=== PATIENT | female | born 1965 | race Caucasian/White ===

== ENCOUNTER → 2016-09-07 | Outpatient (CLI) | payer OTHER ==
[~2016-09-07] MED LIST: ASPI-586 PO; LISI1TAB6 PO
--- NOTE | 2016-09-07 20:34 | Diagnostic Imaging Report ---
EXAM: Right breast ultrasound. INDICATION: Followup lesions seen in the right breast. COMPARISON: 02/12/2016. FINDINGS: At the 2:00 o'clock zone, 5 cm from the nipple, there is a 7 x 7 x 6 mm hypoechoic lesion with peripheral hyperechoic component and shadowing suggestive of an oil cyst. There is another smaller lesion at the 1:30 o'clock position with similar features. These are accompanied by other simple-appearing cysts in the breasts. There is no concerning change from the previous exam. IMPRESSION: The findings are suggestive of oil cysts and simple cysts with no solid mass seen. Return to screening mammography with next exam due in February 2017 Recommended. BI-RADS 2. ACR BI-RADS Category 2: Benign findings. Result letter will be mailed to the patient. Note: At least 10% of breast cancer is not imaged by mammography. Dictated by: Dictated on workstation # [id number]
== END ==
LOC: RAD 09:59
PROVIDERS: ATTEND Nurse Practitioner Family
DX: N60.11 Diffuse cystic mastopathy of right breast (principal)

== ENCOUNTER → 2019-01-18 | Outpatient (CLI) | payer OTHER ==
--- NOTE | 2019-01-18 18:09 | Diagnostic Imaging Report ---
EXAMINATION: Bilateral diagnostic mammogram. The current study was also evaluated with a Computer Aided Detection (CAD) system. 3-D tomosynthesis was also performed and reviewed. INDICATION: Right breast lump. FINDINGS: This study was compared to the prior exams of 02/12/2016 and 02/22/2012. At this time, the patient does complain of a lump in the medial aspect of the right breast. According to the patient, the lump has been present since 2012. A marker was placed over the area of concern. As seen on the prior exam, there do appear to be several oil cysts in this region. There is no primary or secondary sign of malignancy noted. Even so, ultrasound will be recommended for further study. In the interval since the prior study, a small fairly well-circumscribed 8 mm oval density has developed in the upper-outer aspect of the right breast approximately 10 cm from the nipple. The tomographic images suggest that this density has a generally benign appearance. Even so, I would recommend that this area also be evaluated by ultrasound. The left breast is essentially no different. The fibroglandular tissue in each breast is heterogeneously dense and this does limit the sensitivity of this exam. IMPRESSION: 1. There is no mammographic abnormality to correspond to patient's reported mass in the medial aspect of the right breast. Ultrasound will be recommended for further evaluation of this region, however. 2. Ultrasound should also be performed for additional study of the neodensity in the upper-outer aspect of the right breast. ACR BI-RADS Category 0: Incomplete. (Needs additional imaging evaluation). Result letter will be mailed to the patient. Note: At least 10% of breast cancer is not imaged by mammography. Dictated by: Dictated on workstation # [id number]
--- NOTE | 2019-01-18 18:19 | Diagnostic Imaging Report ---
INDICATION: Right breast mass. EXAMINATION: Right breast ultrasound, limited. FINDINGS: The diagnostic mammogram performed prior to this study failed to show any sign of an abnormality in the medial aspect of the right breast in the area of the patient's palpable mass. The previous right breast ultrasound exam of 09/07/2016 did suggest several oil cysts in this region. On this exam, there are again several other oil cysts present. The largest of these is an avascular well-circumscribed hypoechoic lesion with shadowing, measuring 5 x 7 x 6 mm. This is quite similar in appearance to several of the other oil cysts seen on the previous study. There is no solid mass in this area to suggest malignancy. In the 9 o'clock position of the right breast, approximately 8 cm to the nipple, there is a fairly well-circumscribed 7 x 3 x 7 mm avascular hypoechoic lesion with through transmission. There are a few internal echoes present and I suspect that this is a small cyst which has been slightly complicated by infection and/or hemorrhage. This may well correspond to the density seen on the mammogram. There are also two other similar-appearing hypoechoic areas in the 10 o'clock position, roughly 5 cm from the nipple. These have a conglomerate size of approximately 8 mm. These could account for the density seen on mammogram as well. There is no solid mass to suggest malignancy. Even so, it may prove worthwhile to have a short term (six-month) followup mammogram of the right breast for continued evaluation. IMPRESSION: 1. There are a few oil cysts in the area of the patient's palpable abnormality in the medial aspect of the right breast but there is no solid mass to suggest malignancy. Even so, clinical follow-up is recommended. 2. There appear to be benign-appearing cysts in the upper outer aspect of the right breast. These may correspond to the neodensity seen on the mammogram. Recommendations as above. ACR BI-RADS Category 3: Probably benign findings. Result letter will be mailed to the patient. Note: At least 10% of breast cancer is not imaged by mammography. Dictated by: Dictated on workstation # [id number]
== END ==
LOC: RAD 13:36
PROVIDERS: ATTEND Nurse Practitioner Family
DX: Z12.31 Encounter for screening mammogram for malignant neoplasm of breast (principal); N63.10 Unspecified lump in the right breast, unspecified quadrant; N60.01 Solitary cyst of right breast
CPT/HCPCS: 77066